=== PATIENT | female | born 1950 | race Caucasian/White ===

== ENCOUNTER 2022-10-12 10:30 | Outpatient (RCR) | payer OTHER, SELFPAY ==
--- NOTE | 2022-07-03 16:49 | PT.OIE ---
Current Diagnoses Pain in left hip (07/03/22) Pain in left knee (07/03/22) Low back pain, unspecified (07/03/22) Visit Care Team Role Provider Type Gabriel Ruiz MD Family Provider Non-Staff Primary Care Provider Specialty: Family Practice Address: [address] [place] [address], [id number] Email: WINNIE Coyle Attending Provider Non-Staff Referring Provider Specialty: Medical Address: [address] [place] [address], [phone] Email: Physical Therapy Initial Evaluation PT-OP-A Visit Information Start: 07/03/22 15:40 Freq: Status: Active Protocol: Document 07/03/22 09:45 DCW (Rec: 07/03/22 15:47 [facility] [id number]) Out-Patient Physical Therapy Visit Information Visit Information Visit Type Initial Evaluation Visit Start Time 09:45 Visit Stop Time 10:20 Total Visit Minutes 35 Visit Number 1 Number of DEVELOPMENT COORDINATOR Visits 0 Evaluation Information Evaluation Date 07/03/22 PT-OP-B Current Condition Start: 07/03/22 15:40 Freq: Status: Active Protocol: Document 07/03/22 09:45 DCW (Rec: 07/03/22 15:47 [facility] [id number]) Current Condition History of Current Condition Onset Date ~Two month history Current Complaints Left hip pain History of Current Condition Pt reports that two months ago , she began to have fairly severe pain in her left low back, hip, and knee. Reports pain was more than a 10/10. Unsure of any sore of cause, cannot remember anything happening. Reports she could not find anything that gave her relief, was unable to do any of her normal activities, struggled to even go up stairs . Admits that now, after waiting to get seen, she is actually doing much better. 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 Pt reports she is now able to do all her chores, pain has been more like a 1-2/10. Overall, feels that she is doing well, but would like to learn what she can do to help prevent this from coming back, and help get her hip moving a little better, because it is still stiff. PT-OP-C Subjective Start: 07/03/22 15:40 Freq: Status: Active Protocol: Document 07/03/22 09:45 DCW (Rec: 07/03/22 15:52 DCW [id number]) OP-PT Subjective Patient Comments Patient Comments It's actually feeling pretty good by now. Patient Reported Progress Improving Patient Questionnaires Oswestry Low Back Index Oswestry Score 13/50 = 26% Oswestry Impairment 20 to 39% Impaired (Score 20- 39) PT-OP-F Manual Assessment Start: 07/03/22 15:40 Freq: Status: Active Protocol: Document 07/03/22 09:45 DCW (Rec: 07/03/22 15:52 DCW [id number]) Manual Assessments Soft Tissue Assessment Soft Tissue Mobility Assessment Moderate tone with tenderness to palpation 2/4: pain with wincing along left QL, left piriformis, left ITB Joint Mobility Assessment Joint Mobility Assessment Hypomobility of L3 with mild complaint of pain PT-OP-L Special Tests Start: 07/03/22 15:40 Freq: Status: Active Protocol: Document 07/03/22 09:45 DCW (Rec: 07/03/22 15:52 DCW [id number]) Special Tests Lumbar Spine Special Tests JAYRO Test Results positive left ipsilateral anterior knee pain Lio Test Results hip flexor tightness Straight Leg Raise Test Results hamstring tightness Slump Test Results Negative Manual Traction Test Results Negative A-P Shearing Test Results Negative PT-OP-M Strength Start: 07/03/22 15:40 Freq: Status: Active Protocol: Document 07/03/22 09:45 DCW (Rec: 07/03/22 15:52 DCW [id number]) Hip Strength Hip Manual Muscle Testing Right Flexion (L2) 5 Normal Abduction 5 Normal Adduction 5 Normal Left Flexion (L2) 5 Normal Abduction 5 Normal Adduction 5 Normal Knee Strength Knee Manual Muscle Testing Right Flexion (S2) 5 Normal Extension (L3) 5 Normal Left Flexion (S2) 5 Normal Extension (L3) 5 Normal PT-OP-Q Treatments Start: 07/03/22 15:40 Freq: Status: Active Protocol: Document 07/03/22 09:45 DCW (Rec: 07/03/22 15:47 DCW [id number]) Therapeutic Exercises Sitting Exercises Piriformis stretch Sitting Exercise Name Seated figure-4 Side left PT-OP-T Assessment and Plan Start: 07/03/22 15:40 Freq: Status: Active Protocol: Document 07/03/22 09:45 DCW (Rec: 07/03/22 16:48 [facility] [id number]) Physical Therapy Assessment Rehab Potential Rehabilitation Potential Good Evaluation Complexity Number of Personal Factors/Comorbidities 1-2 Number of Body Systems Impaired 1-2 Clinical Presentation at Evaluation Stable Impairments Impairments Functional Activities, Functional Mobility,Pain,Soft Tissue Mobility,Tone Goals Two Impairment L hip pain and stiffness Obstetrics Nurse Goal (LTG) Pt to demonstrate negative SLR and JAYRO tests in order to display improve hip mobility in order to ascend/descend stairs without discomfort. LTG Duration 08/14/22 One Impairment Pt does not have an appropriate home exercise program Short Term Goal (STG) Pt to be independent and compliant with an appropriate HEP STG Duration 08/03/22 Assessment Summary Assessment Pt presents with signs and symptoms consistent with hip flexor and external rotator spasm. May have been caused by protective spasming due to degenerative changes in her low back, but has drastically improved since her initial symptoms began. Pt will likely progress quickly with STM and stretching in order to reduce tone and improve left hip mobility. Should continue with piriformis stretch, in addition to hip flexor/ITB stretches, and STM. Physical Therapy Plan Frequency and Duration Frequency of Treatment 1-2x/wk Duration of treatment (weeks) 8 Plan of Care Start Date 07/03/22 Plan of Care End Date 08/14/22 Therapeutic Interventions Therapeutic Interventions Home Exercise Program,Joint Mobilizations,Manual Therapy, Patient/Caregiver Education, Self-Care/Home Management,Soft Tissue Mobilization, Therapeutic Activities, Therapeutic Exercises Next Visit Focus/Plan Next Note Type Treatment Note Next Visit Plan Stretching/flexibility of hip and joint capsule, STM
--- NOTE | 2022-07-03 16:49 | PT.OPPOC ---
Physical, Occupational & Speech Therapy At [facility] Current Diagnoses Pain in left hip (07/03/22) Pain in left knee (07/03/22) Low back pain, unspecified (07/03/22) Visit Care Team Role Provider Type Gabriel Ruiz MD Family Provider Non-Staff Primary Care Provider Specialty: Family Practice Address: [address] [place] [address], [id number] Email: WINNIE Coyle Attending Provider Non-Staff Referring Provider Specialty: Medical Address: [address] [place] [address], [place], [address] Email: Plan Of Care PT-OP-T Assessment and Plan Start: 07/03/22 15:40 Freq: Status: Active Protocol: Document 07/03/22 09:45 DCW (Rec: 07/03/22 16:48 DCW [id number]) Physical Therapy Assessment Rehab Potential Rehabilitation Potential Good Evaluation Complexity Number of Personal Factors/Comorbidities 1-2 Number of Body Systems Impaired 1-2 Clinical Presentation at Evaluation Stable Impairments Impairments Functional Activities, Functional Mobility,Pain,Soft Tissue Mobility,Tone Goals Two Impairment L hip pain and stiffness Pet Feeder Goal (LTG) Pt to demonstrate negative SLR and JAYRO tests in order to display improve hip mobility in order to ascend/descend stairs without discomfort. LTG Duration 08/14/22 One Impairment Pt does not have an appropriate home exercise program Short Term Goal (STG) Pt to be independent and compliant with an appropriate HEP STG Duration 08/03/22 Assessment Summary Assessment Pt presents with signs and symptoms consistent with hip flexor and external rotator spasm. May have been caused by protective spasming due to degenerative changes in her low back, but has drastically improved since her initial symptoms began. Pt will likely progress quickly with STM and stretching in order to reduce tone and improve left hip mobility. Should continue with piriformis stretch, in addition to hip flexor/ITB stretches, and STM. Physical Therapy Plan Frequency and Duration Frequency of Treatment 1-2x/wk Duration of treatment (weeks) 8 Plan of Care Start Date 07/03/22 Plan of Care End Date 08/14/22 Therapeutic Interventions Therapeutic Interventions Home Exercise Program,Joint Mobilizations,Manual Therapy, Patient/Caregiver Education, Self-Care/Home Management,Soft Tissue Mobilization, Therapeutic Activities, Therapeutic Exercises Next Visit Focus/Plan Next Note Type Treatment Note Next Visit Plan Stretching/flexibility of hip and joint capsule, STM Plan of Care Dates Plan of Care Start Date 07/03/22 Plan of Care End Date 08/14/22 Electronically Signed by: Waylon Bray, PT 07/03/22 5040 If you are in agreement with this Plan of Care, please return a signed and dated copy. I have reviewed this Plan of Care and certify that the skilled therapy services above are required to meet the patient?s needs. Physician Signature Date Printed Name and Credentials Clinical Instructor Signature Printed Name and Credentials
--- NOTE | 2022-08-28 15:16 | PT.OTN ---
Current Diagnoses Pain in left hip (08/28/22) Pain in left knee (08/28/22) Low back pain, unspecified (08/28/22) Physical Therapy Treatment Note PT-OP-A Visit Information Start: 07/03/22 15:40 Freq: Status: Active Protocol: Document 08/28/22 14:30 DCW (Rec: 08/28/22 15:16 DCW [id number]) Out-Patient Physical Therapy Visit Information Visit Information Visit Type Treatment Note Visit Start Time 14:30 Visit Stop Time 15:15 Total Visit Minutes 45 Visit Number 2 Number of SMALL ENGINE SPECIALIST Visits 0 Evaluation Information Evaluation Date 07/03/22 PT-OP-B Current Condition Start: 07/03/22 15:40 Freq: Status: Active Protocol: Document 07/03/22 09:45 DCW (Rec: 07/03/22 15:47 DCW [id number]) Current Condition History of Current Condition Onset Date ~Two month history Current Complaints Left hip pain History of Current Condition Pt reports that two months ago , she began to have fairly severe pain in her left low back, hip, and knee. Reports pain was more than a 10/10. Unsure of any sore of cause, cannot remember anything happening. Reports she could not find anything that gave her relief, was unable to do any of her normal activities, struggled to even go up stairs . Admits that now, after waiting to get seen, she is actually doing much better. 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 Pt reports she is now able to do all her chores, pain has been more like a 1-2/10. Overall, feels that she is doing well, but would like to learn what she can do to help prevent this from coming back, and help get her hip moving a little better, because it is still stiff. PT-OP-C Subjective Start: 07/03/22 15:40 Freq: Status: Active Protocol: Document 08/28/22 14:30 DCW (Rec: 08/28/22 15:16 DCW [id number]) OP-PT Subjective Patient Comments Patient Comments Pt returned to PT following an extended layoff due to problems with her insurance auth. Reports she had been doing very well until last week, when she attempted to move her furniture and went back to [facility]. PT-OP-F Manual Assessment Start: 07/03/22 15:40 Freq: Status: Active Protocol: Document 08/28/22 14:30 DCW (Rec: 08/28/22 15:16 DCW [id number]) Manual Assessments Soft Tissue Assessment Soft Tissue Mobility Assessment Moderate tone with tenderness to palpation 3/4: wincing and withdraw along left QL, left piriformis, left ITB Joint Mobility Assessment Joint Mobility Assessment Hypomobility of L3 with mild complaint of pain PT-OP-L Special Tests Start: 07/03/22 15:40 Freq: Status: Active Protocol: Document 08/28/22 14:30 DCW (Rec: 08/28/22 15:16 DCW [id number]) Special Tests Lumbar Spine Special Tests JAYRO Test Results positive left ipsilateral anterior knee pain Lio Test Results hip flexor tightness Straight Leg Raise Test Results hamstring tightness Slump Test Results Negative Manual Traction Test Results Negative A-P Shearing Test Results Negative PT-OP-M Strength Start: 07/03/22 15:40 Freq: Status: Active Protocol: Document 07/03/22 09:45 DCW (Rec: 07/03/22 15:52 DCW [id number]) Hip Strength Hip Manual Muscle Testing Right Flexion (L2) 5 Normal Abduction 5 Normal Adduction 5 Normal Left Flexion (L2) 5 Normal Abduction 5 Normal Adduction 5 Normal Knee Strength Knee Manual Muscle Testing Right Flexion (S2) 5 Normal Extension (L3) 5 Normal Left Flexion (S2) 5 Normal Extension (L3) 5 Normal PT-OP-Q Treatments Start: 07/03/22 15:40 Freq: Status: Active Protocol: Document 08/28/22 14:30 DCW (Rec: 08/28/22 15:16 DCW [id number]) Therapeutic Exercises Supine Exercises Piriformis stretch Supine Exercise Name Knee to opposite shoulder Side left Hamstring Stretch Supine Exercise Name HS stretch Side bilateral KtC Supine Exercise Name Single, Double KtC Side bilateral Sidelying Exercises Hip Abduction Sidelying Exercise Name Abduction Side left Reverse Clamshell Sidelying Exercise Name Reverse Clamshell Side left Clamshell Sidelying Exercise Name Clamshell Side left Manual Therapy Treatment Soft Tissue Mobilization Paraspinals Body Location L Lumbar paraspinals Mobilization Type Sustained Pressure,Trigger Point Release Intensity/Depth Moderate Body Position Sidelying Piriformis Body Location L Piriformis Mobilization Type Sustained Pressure,Trigger Point Release Intensity/Depth Moderate Body Position Sidelying Manual Traction Left hip Details Joint capsule Body Position Hooklying Comments Lateral traction /c strap PT-OP-T Assessment and Plan Start: 07/03/22 15:40 Freq: Status: Active Protocol: Document 08/28/22 14:30 DCW (Rec: 08/28/22 15:16 DCW [id number]) Physical Therapy Assessment Goals Two Impairment L hip pain and stiffness Supervisor Hot Dip Tinning Goal (LTG) Pt to demonstrate negative SLR and JAYRO tests in order to display improve hip mobility in order to ascend/descend stairs without discomfort. LTG Duration 08/14/22 One Impairment Pt does not have an appropriate home exercise program Short Term Goal (STG) Pt to be independent and compliant with an appropriate HEP STG Duration 08/03/22 Assessment Summary Assessment Pt a little more tender today after flaring herself up moving furniture last week, with most stretching she was wincing and bracing herself, but would then report she was fine and not having any pain. Did appear to have improved mobility and was able to relax more after lateral distraction of hip to stretch out joint capsule. Sounds like she had been doing very well and was compliant with HEP. Will likely benefit from now consistent therapy and continued manual therapy, joint mobs, stretching, and functional training. Physical Therapy Plan Frequency and Duration Frequency of Treatment 1-2x/wk Plan of Care Start Date 08/28/22 Plan of Care End Date 10/23/22 Therapeutic Interventions Therapeutic Interventions Home Exercise Program,Joint Mobilizations,Manual Therapy, Patient/Caregiver Education, Self-Care/Home Management,Soft Tissue Mobilization, Therapeutic Activities, Therapeutic Exercises Next Visit Focus/Plan Next Note Type Treatment Note Next Visit Plan Stretching/flexibility of hip and joint capsule, STM
--- NOTE | 2022-08-28 15:17 | PT.OPPOC ---
Physical, Occupational & Speech Therapy At [facility] Current Diagnoses Pain in left hip (08/28/22) Pain in left knee (08/28/22) Low back pain, unspecified (08/28/22) Visit Care Team Role Provider Type Gabriel Ruiz MD Family Provider Non-Staff Primary Care Provider Specialty: Family Practice Address: [address] [place] [address], [id number] Email: WINNIE Coyle Attending Provider Non-Staff Referring Provider Specialty: Medical Address: [address] [place] [address], [place], [address] Email: Plan Of Care PT-OP-T Assessment and Plan Start: 07/03/22 15:40 Freq: Status: Active Protocol: Document 08/28/22 14:30 DCW (Rec: 08/28/22 15:16 DCW [id number]) Physical Therapy Assessment Goals Two Impairment L hip pain and stiffness Skilled Nursing Goal (LTG) Pt to demonstrate negative SLR and JAYRO tests in order to display improve hip mobility in order to ascend/descend stairs without discomfort. LTG Duration 08/14/22 One Impairment Pt does not have an appropriate home exercise program Short Term Goal (STG) Pt to be independent and compliant with an appropriate HEP STG Duration 08/03/22 Assessment Summary Assessment Pt a little more tender today after flaring herself up moving furniture last week, with most stretching she was wincing and bracing herself, but would then report she was fine and not having any pain. Did appear to have improved mobility and was able to relax more after lateral distraction of hip to stretch out joint capsule. Sounds like she had been doing very well and was compliant with HEP. Will likely benefit from now consistent therapy and continued manual therapy, joint mobs, stretching, and functional training. Physical Therapy Plan Frequency and Duration Frequency of Treatment 1-2x/wk Plan of Care Start Date 08/28/22 Plan of Care End Date 10/23/22 Therapeutic Interventions Therapeutic Interventions Home Exercise Program,Joint Mobilizations,Manual Therapy, Patient/Caregiver Education, Self-Care/Home Management,Soft Tissue Mobilization, Therapeutic Activities, Therapeutic Exercises Next Visit Focus/Plan Next Note Type Treatment Note Next Visit Plan Stretching/flexibility of hip and joint capsule, STM Plan of Care Dates Plan of Care Start Date 08/28/22 Plan of Care End Date 10/23/22 Electronically Signed by: Waylon Bray, PT 08/28/22 0043 If you are in agreement with this Plan of Care, please return a signed and dated copy. I have reviewed this Plan of Care and certify that the skilled therapy services above are required to meet the patient?s needs. Physician Signature Date Printed Name and Credentials Clinical Instructor Signature Printed Name and Credentials
--- NOTE | 2022-09-03 16:00 | PT.OTN ---
Current Diagnoses Pain in left hip (09/03/22) Pain in left knee (09/03/22) Low back pain, unspecified (09/03/22) Physical Therapy Treatment Note PT-OP-A Visit Information Start: 07/03/22 15:40 Freq: Status: Active Protocol: Document 09/03/22 15:15 DCW (Rec: 09/03/22 16:00 DCW [id number]) Out-Patient Physical Therapy Visit Information Visit Information Visit Type Treatment Note Visit Start Time 15:15 Visit Stop Time 16:00 Total Visit Minutes 45 Visit Number 3 Number of POCKET SECRETARY ASSEMBLER Visits 0 Evaluation Information Evaluation Date 07/03/22 PT-OP-B Current Condition Start: 07/03/22 15:40 Freq: Status: Active Protocol: Document 07/03/22 09:45 DCW (Rec: 07/03/22 15:47 DCW [id number]) Current Condition History of Current Condition Onset Date ~Two month history Current Complaints Left hip pain History of Current Condition Pt reports that two months ago , she began to have fairly severe pain in her left low back, hip, and knee. Reports pain was more than a 10/10. Unsure of any sore of cause, cannot remember anything happening. Reports she could not find anything that gave her relief, was unable to do any of her normal activities, struggled to even go up stairs . Admits that now, after waiting to get seen, she is actually doing much better. 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 Pt reports she is now able to do all her chores, pain has been more like a 1-2/10. Overall, feels that she is doing well, but would like to learn what she can do to help prevent this from coming back, and help get her hip moving a little better, because it is still stiff. PT-OP-C Subjective Start: 07/03/22 15:40 Freq: Status: Active Protocol: Document 09/03/22 15:15 DCW (Rec: 09/03/22 16:00 DCW [id number]) OP-PT Subjective Patient Comments Patient Comments Pt admits she was a little sore after last visit, has been taking Tylenol basically every night. Patient Reported Progress Worse PT-OP-F Manual Assessment Start: 07/03/22 15:40 Freq: Status: Active Protocol: Document 08/28/22 14:30 DCW (Rec: 08/28/22 15:16 DCW [id number]) Manual Assessments Soft Tissue Assessment Soft Tissue Mobility Assessment Moderate tone with tenderness to palpation 3/4: wincing and withdraw along left QL, left piriformis, left ITB Joint Mobility Assessment Joint Mobility Assessment Hypomobility of L3 with mild complaint of pain PT-OP-L Special Tests Start: 07/03/22 15:40 Freq: Status: Active Protocol: Document 08/28/22 14:30 DCW (Rec: 08/28/22 15:16 DCW [id number]) Special Tests Lumbar Spine Special Tests JAYRO Test Results positive left ipsilateral anterior knee pain Lio Test Results hip flexor tightness Straight Leg Raise Test Results hamstring tightness Slump Test Results Negative Manual Traction Test Results Negative A-P Shearing Test Results Negative PT-OP-M Strength Start: 07/03/22 15:40 Freq: Status: Active Protocol: Document 07/03/22 09:45 DCW (Rec: 07/03/22 15:52 DCW [id number]) Hip Strength Hip Manual Muscle Testing Right Flexion (L2) 5 Normal Abduction 5 Normal Adduction 5 Normal Left Flexion (L2) 5 Normal Abduction 5 Normal Adduction 5 Normal Knee Strength Knee Manual Muscle Testing Right Flexion (S2) 5 Normal Extension (L3) 5 Normal Left Flexion (S2) 5 Normal Extension (L3) 5 Normal PT-OP-Q Treatments Start: 07/03/22 15:40 Freq: Status: Active Protocol: Document 09/03/22 15:15 DCW (Rec: 09/03/22 16:00 DCW [id number]) Gym Equipment Therapeutic Ball Hip/knee fkexion Exercise Details Hip/Knee flexion vs resistance Ball Size/Color Red - 55 cm Lv 2 T-band LTR Exercise Details LTR Ball Size/Color Red - 55 cm Body Position Supine Therapeutic Exercises Supine Exercises Piriformis stretch Supine Exercise Name Knee to opposite shoulder Side left Hamstring Stretch Supine Exercise Name HS stretch Side bilateral KtC Supine Exercise Name Single, Double KtC Side bilateral Manual Therapy Treatment Soft Tissue Mobilization Paraspinals Body Location B Lumbar paraspinals Mobilization Type Sustained Pressure,Trigger Point Release Intensity/Depth Moderate Body Position Sidelying Piriformis Body Location L Piriformis Mobilization Type Sustained Pressure,Trigger Point Release Intensity/Depth Moderate Body Position Sidelying PT-OP-T Assessment and Plan Start: 07/03/22 15:40 Freq: Status: Active Protocol: Document 09/03/22 15:15 DCW (Rec: 09/03/22 16:00 DCW [id number]) Physical Therapy Assessment Goals Two Impairment L hip pain and stiffness Assisted Goal (LTG) Pt to demonstrate negative SLR and JAYRO tests in order to display improve hip mobility in order to ascend/descend stairs without discomfort. LTG Duration 08/14/22 One Impairment Pt does not have an appropriate home exercise program Short Term Goal (STG) Pt to be independent and compliant with an appropriate HEP STG Duration 08/03/22 Assessment Summary Assessment Pt feeling much better today following her session, able to get off table and walk out with significantly less discomfort. Pt agreeable to increase HS and ITB stretching at home. Physical Therapy Plan Frequency and Duration Frequency of Treatment 1-2x/wk Plan of Care Start Date 08/28/22 Plan of Care End Date 10/23/22 Therapeutic Interventions Therapeutic Interventions Home Exercise Program,Joint Mobilizations,Manual Therapy, Patient/Caregiver Education, Self-Care/Home Management,Soft Tissue Mobilization, Therapeutic Activities, Therapeutic Exercises Next Visit Focus/Plan Next Note Type Treatment Note Next Visit Plan Stretching/flexibility of hip and joint capsule, STM
--- NOTE | 2022-09-08 09:00 | PT.OTN ---
Current Diagnoses Pain in left hip (09/08/22) Pain in left knee (09/08/22) Low back pain, unspecified (09/08/22) Physical Therapy Treatment Note PT-OP-A Visit Information Start: 07/03/22 15:40 Freq: Status: Active Protocol: Document 09/08/22 08:19 SP (Rec: 09/08/22 09:09 SP [id number]) Out-Patient Physical Therapy Visit Information Visit Information Visit Type Treatment Note Visit Start Time 08:19 Visit Stop Time 09:00 Total Visit Minutes 41 Visit Number 4 Number of VERIFICATION SPECIALIST Visits 1 Evaluation Information Evaluation Date 07/03/22 PT-OP-B Current Condition Start: 07/03/22 15:40 Freq: Status: Active Protocol: Document 07/03/22 09:45 DCW (Rec: 07/03/22 15:47 DCW [id number]) Current Condition History of Current Condition Onset Date ~Two month history Current Complaints Left hip pain History of Current Condition Pt reports that two months ago , she began to have fairly severe pain in her left low back, hip, and knee. Reports pain was more than a 10/10. Unsure of any sore of cause, cannot remember anything happening. Reports she could not find anything that gave her relief, was unable to do any of her normal activities, struggled to even go up stairs . Admits that now, after waiting to get seen, she is actually doing much better. 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 Pt reports she is now able to do all her chores, pain has been more like a 1-2/10. Overall, feels that she is doing well, but would like to learn what she can do to help prevent this from coming back, and help get her hip moving a little better, because it is still stiff. PT-OP-C Subjective Start: 07/03/22 15:40 Freq: Status: Active Protocol: Document 09/08/22 08:19 SP (Rec: 09/08/22 09:09 SP [id number]) OP-PT Subjective Patient Comments Patient Comments Pt reports doing stretches, slept ok last night back sore but able to go to sleep eventually. PT-OP-F Manual Assessment Start: 07/03/22 15:40 Freq: Status: Active Protocol: Document 08/28/22 14:30 DCW (Rec: 08/28/22 15:16 DCW [id number]) Manual Assessments Soft Tissue Assessment Soft Tissue Mobility Assessment Moderate tone with tenderness to palpation 3/4: wincing and withdraw along left QL, left piriformis, left ITB Joint Mobility Assessment Joint Mobility Assessment Hypomobility of L3 with mild complaint of pain PT-OP-L Special Tests Start: 07/03/22 15:40 Freq: Status: Active Protocol: Document 08/28/22 14:30 DCW (Rec: 08/28/22 15:16 DCW [id number]) Special Tests Lumbar Spine Special Tests JAYRO Test Results positive left ipsilateral anterior knee pain Lio Test Results hip flexor tightness Straight Leg Raise Test Results hamstring tightness Slump Test Results Negative Manual Traction Test Results Negative A-P Shearing Test Results Negative PT-OP-M Strength Start: 07/03/22 15:40 Freq: Status: Active Protocol: Document 07/03/22 09:45 DCW (Rec: 07/03/22 15:52 DCW [id number]) Hip Strength Hip Manual Muscle Testing Right Flexion (L2) 5 Normal Abduction 5 Normal Adduction 5 Normal Left Flexion (L2) 5 Normal Abduction 5 Normal Adduction 5 Normal Knee Strength Knee Manual Muscle Testing Right Flexion (S2) 5 Normal Extension (L3) 5 Normal Left Flexion (S2) 5 Normal Extension (L3) 5 Normal PT-OP-Q Treatments Start: 07/03/22 15:40 Freq: Status: Active Protocol: Document 09/08/22 08:19 SP (Rec: 09/08/22 09:09 SP [id number]) Gym Equipment Therapeutic Ball Hip/knee fkexion Exercise Details Hip/Knee flexion vs resistance - added to HEP Ball Size/Color Red - 55 cm Lv 2 T-band Body Position Hooklying Reps/Duration 2x10 Comments provided HOs for home LTR Exercise Details LTR- added toHEP Ball Size/Color Red - 55 cm Body Position Supine Comments AROM> TB #2-provided HOs for home Therapeutic Exercises Supine Exercises Piriformis stretch Supine Exercise Name Knee to opposite shoulder Side left Reps/Minutes 20 SH x2 Comments good feedback stretch Hamstring Stretch Supine Exercise Name HS stretch Side bilateral Reps/Minutes static stretch 20 s, active neutral glide w/ AP Comments good feedback stretch, cued slow low lift and if ok add AP slowly KtC Supine Exercise Name Single, Double KtC Side bilateral Reps/Minutes 20SH 3each Comments good feedback stretch Standing Exercises self STMs Standing Exercise Name ES, glut Side bilateral Equipment Used racquetball onw all Comments good feedback massage R and L glut, little sensitive L ES. Manual Therapy Treatment Soft Tissue Mobilization Paraspinals Body Location B Lumbar paraspinals Mobilization Type Sustained Pressure,Trigger Point Release Intensity/Depth Moderate Body Position Sidelying Piriformis Body Location L Piriformis Mobilization Type Sustained Pressure,Trigger Point Release Intensity/Depth Moderate Body Position Sidelying PT-OP-T Assessment and Plan Start: 07/03/22 15:40 Freq: Status: Active Protocol: Document 09/08/22 08:19 SP (Rec: 09/08/22 09:09 SP [id number]) Physical Therapy Assessment Goals Two Impairment L hip pain and stiffness Assisted Goal (LTG) Pt to demonstrate negative SLR and JAYRO tests in order to display improve hip mobility in order to ascend/descend stairs without discomfort. LTG Duration 08/14/22 One Impairment Pt does not have an appropriate home exercise program Short Term Goal (STG) Pt to be independent and compliant with an appropriate HEP STG Duration 08/03/22 Assessment Summary Assessment Pt good feedback stretch carryover with cues for set up , provided HOs for recall home . Trialed self massage racquetball on wall, little sensitive L paraspinal but rest of areas. Pt reported L low back felt better end tx and liked use of having HOs at home. Physical Therapy Plan Frequency and Duration Frequency of Treatment 1-2x/wk Plan of Care Start Date 08/28/22 Plan of Care End Date 10/23/22 Therapeutic Interventions Therapeutic Interventions Home Exercise Program,Joint Mobilizations,Manual Therapy, Patient/Caregiver Education, Self-Care/Home Management,Soft Tissue Mobilization, Therapeutic Activities, Therapeutic Exercises Next Visit Focus/Plan Next Note Type Treatment Note Next Visit Plan Stretching/flexibility of hip and joint capsule, STM
--- NOTE | 2022-09-22 17:38 | PT.OTN ---
Current Diagnoses Pain in left hip (09/22/22) Pain in left knee (09/22/22) Low back pain, unspecified (09/22/22) Physical Therapy Treatment Note PT-OP-A Visit Information Start: 07/03/22 15:40 Freq: Status: Active Protocol: Document 09/22/22 16:48 DCW (Rec: 09/22/22 17:38 DCW [id number]) Out-Patient Physical Therapy Visit Information Visit Information Visit Type Treatment Note Visit Start Time 16:47 Visit Stop Time 17:30 Total Visit Minutes 43 Visit Number 5 Number of GAS UTILITY WORKER Visits 0 Evaluation Information Evaluation Date 07/03/22 PT-OP-B Current Condition Start: 07/03/22 15:40 Freq: Status: Active Protocol: Document 07/03/22 09:45 DCW (Rec: 07/03/22 15:47 DCW [id number]) Current Condition History of Current Condition Onset Date ~Two month history Current Complaints Left hip pain History of Current Condition Pt reports that two months ago , she began to have fairly severe pain in her left low back, hip, and knee. Reports pain was more than a 10/10. Unsure of any sore of cause, cannot remember anything happening. Reports she could not find anything that gave her relief, was unable to do any of her normal activities, struggled to even go up stairs . Admits that now, after waiting to get seen, she is actually doing much better. 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 Pt reports she is now able to do all her chores, pain has been more like a 1-2/10. Overall, feels that she is doing well, but would like to learn what she can do to help prevent this from coming back, and help get her hip moving a little better, because it is still stiff. PT-OP-C Subjective Start: 07/03/22 15:40 Freq: Status: Active Protocol: Document 09/22/22 16:48 DCW (Rec: 09/22/22 17:38 DCW [id number]) OP-PT Subjective Patient Comments Patient Comments Pt notes that following her PT appointments, she is very sore, reporting a 9/10 the day after, then returns to her normal of 6-7/10. Feels she has not progressed at all yet. PT-OP-F Manual Assessment Start: 07/03/22 15:40 Freq: Status: Active Protocol: Document 08/28/22 14:30 DCW (Rec: 08/28/22 15:16 DCW [id number]) Manual Assessments Soft Tissue Assessment Soft Tissue Mobility Assessment Moderate tone with tenderness to palpation 3/4: wincing and withdraw along left QL, left piriformis, left ITB Joint Mobility Assessment Joint Mobility Assessment Hypomobility of L3 with mild complaint of pain PT-OP-L Special Tests Start: 07/03/22 15:40 Freq: Status: Active Protocol: Document 08/28/22 14:30 DCW (Rec: 08/28/22 15:16 DCW [id number]) Special Tests Lumbar Spine Special Tests JAYRO Test Results positive left ipsilateral anterior knee pain Lio Test Results hip flexor tightness Straight Leg Raise Test Results hamstring tightness Slump Test Results Negative Manual Traction Test Results Negative A-P Shearing Test Results Negative PT-OP-M Strength Start: 07/03/22 15:40 Freq: Status: Active Protocol: Document 07/03/22 09:45 DCW (Rec: 07/03/22 15:52 DCW [id number]) Hip Strength Hip Manual Muscle Testing Right Flexion (L2) 5 Normal Abduction 5 Normal Adduction 5 Normal Left Flexion (L2) 5 Normal Abduction 5 Normal Adduction 5 Normal Knee Strength Knee Manual Muscle Testing Right Flexion (S2) 5 Normal Extension (L3) 5 Normal Left Flexion (S2) 5 Normal Extension (L3) 5 Normal PT-OP-Q Treatments Start: 07/03/22 15:40 Freq: Status: Active Protocol: Document 09/22/22 16:48 DCW (Rec: 09/22/22 17:38 DCW [id number]) Manual Therapy Treatment Soft Tissue Mobilization Paraspinals Body Location B Lumbar paraspinals Mobilization Type Sustained Pressure,Trigger Point Release Intensity/Depth Moderate Body Position Sidelying Piriformis Body Location L Piriformis Mobilization Type Sustained Pressure,Trigger Point Release Intensity/Depth Moderate Body Position Sidelying PT-OP-T Assessment and Plan Start: 07/03/22 15:40 Freq: Status: Active Protocol: Document 09/22/22 16:48 DCW (Rec: 09/22/22 17:38 DCW [id number]) Physical Therapy Assessment Goals Two Impairment L hip pain and stiffness Detention Goal (LTG) Pt to demonstrate negative SLR and JAYRO tests in order to display improve hip mobility in order to ascend/descend stairs without discomfort. LTG Duration 08/14/22 One Impairment Pt does not have an appropriate home exercise program Short Term Goal (STG) Pt to be independent and compliant with an appropriate HEP STG Duration 08/03/22 Assessment Summary Assessment With pt's current reports of fairly severe increased pain following her PT appointments, focused today strictly on STM /manual treatment, request pt to report next visit on how much pain she was in afterward , try to determine what activity is flaring her up in PT. Physical Therapy Plan Frequency and Duration Frequency of Treatment 1-2x/wk Plan of Care Start Date 08/28/22 Plan of Care End Date 10/23/22 Therapeutic Interventions Therapeutic Interventions Home Exercise Program,Joint Mobilizations,Manual Therapy, Patient/Caregiver Education, Self-Care/Home Management,Soft Tissue Mobilization, Therapeutic Activities, Therapeutic Exercises Next Visit Focus/Plan Next Note Type Treatment Note Next Visit Plan Stretching/flexibility of hip and joint capsule, STM
--- NOTE | 2022-09-25 13:00 | PT.OTN ---
Current Diagnoses Pain in left hip (09/25/22) Pain in left knee (09/25/22) Low back pain, unspecified (09/25/22) Physical Therapy Treatment Note PT-OP-A Visit Information Start: 07/03/22 15:40 Freq: Status: Active Protocol: Document 09/25/22 12:17 SP (Rec: 09/25/22 13:11 SP [id number]) Out-Patient Physical Therapy Visit Information Visit Information Visit Type Treatment Note Visit Start Time 12:17 Visit Stop Time 13:00 Total Visit Minutes 43 Visit Number 6 Number of SCHOOL TRAFFIC SUPERVISOR Visits 1 Evaluation Information Evaluation Date 07/03/22 PT-OP-B Current Condition Start: 07/03/22 15:40 Freq: Status: Active Protocol: Document 07/03/22 09:45 DCW (Rec: 07/03/22 15:47 DCW [id number]) Current Condition History of Current Condition Onset Date ~Two month history Current Complaints Left hip pain History of Current Condition Pt reports that two months ago , she began to have fairly severe pain in her left low back, hip, and knee. Reports pain was more than a 10/10. Unsure of any sore of cause, cannot remember anything happening. Reports she could not find anything that gave her relief, was unable to do any of her normal activities, struggled to even go up stairs . Admits that now, after waiting to get seen, she is actually doing much better. 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 Pt reports she is now able to do all her chores, pain has been more like a 1-2/10. Overall, feels that she is doing well, but would like to learn what she can do to help prevent this from coming back, and help get her hip moving a little better, because it is still stiff. PT-OP-C Subjective Start: 07/03/22 15:40 Freq: Status: Active Protocol: Document 09/25/22 12:17 SP (Rec: 09/25/22 13:11 SP [id number]) OP-PT Subjective Patient Comments Patient Comments What we did last time worked well. It was good for little bit then same back today. PT-OP-F Manual Assessment Start: 07/03/22 15:40 Freq: Status: Active Protocol: Document 08/28/22 14:30 DCW (Rec: 08/28/22 15:16 DCW [id number]) Manual Assessments Soft Tissue Assessment Soft Tissue Mobility Assessment Moderate tone with tenderness to palpation 3/4: wincing and withdraw along left QL, left piriformis, left ITB Joint Mobility Assessment Joint Mobility Assessment Hypomobility of L3 with mild complaint of pain PT-OP-L Special Tests Start: 07/03/22 15:40 Freq: Status: Active Protocol: Document 08/28/22 14:30 DCW (Rec: 08/28/22 15:16 DCW [id number]) Special Tests Lumbar Spine Special Tests JAYRO Test Results positive left ipsilateral anterior knee pain Lio Test Results hip flexor tightness Straight Leg Raise Test Results hamstring tightness Slump Test Results Negative Manual Traction Test Results Negative A-P Shearing Test Results Negative PT-OP-M Strength Start: 07/03/22 15:40 Freq: Status: Active Protocol: Document 07/03/22 09:45 DCW (Rec: 07/03/22 15:52 DCW [id number]) Hip Strength Hip Manual Muscle Testing Right Flexion (L2) 5 Normal Abduction 5 Normal Adduction 5 Normal Left Flexion (L2) 5 Normal Abduction 5 Normal Adduction 5 Normal Knee Strength Knee Manual Muscle Testing Right Flexion (S2) 5 Normal Extension (L3) 5 Normal Left Flexion (S2) 5 Normal Extension (L3) 5 Normal PT-OP-Q Treatments Start: 07/03/22 15:40 Freq: Status: Active Protocol: Document 09/25/22 12:17 SP (Rec: 09/25/22 13:11 SP [id number]) Therapeutic Exercises Supine Exercises lio stretch Supine Exercise Name added to HEP Side bilateral Resistance L>R Reps/Minutes 30x2 Comments good feedback stretch FIg 4 Supine Exercise Name added toHEP Side bilateral Equipment Used L>R Reps/Minutes 30 x2 Comments good feedback stretch Piriformis stretch Supine Exercise Name Knee to opposite shoulder Side left Resistance L>R Reps/Minutes 20 SH x2 Comments good feedback stretch KtC Supine Exercise Name Single, Double KtC Side bilateral Reps/Minutes 20SH 3each Comments DC due to anterior L hip pressure and pinch feeling Standing Exercises self STMs Standing Exercise Name L>R ES, L glut, L TFL Side bilateral Equipment Used racquetball on wall Reps/Minutes 30 Comments good feedback massage L glut region and ES Other Exercises 1/2 kneel stretch Other Exercise Name added to HEP Side left Reps/Minutes 30 x2 Comments good feedback stretch Manual Therapy Treatment Soft Tissue Mobilization Paraspinals Body Location B Lumbar paraspinals Mobilization Type Myofascial Release,Strumming, Sustained Pressure Intensity/Depth Moderate Body Position Prone Piriformis Body Location L Piriformis, glut med Mobilization Type Sustained Pressure,Trigger Point Release Intensity/Depth Moderate Body Position Prone Comments manual sustained pressure and w/ HIp IR/ ER PROM Manual Traction Left hip Details Joint capsule distraction- Grade II Body Position Hooklying Comments long axis pull and inferior traction /c strap with towel- good feedback response Self-Care/Home Management Treatment Education Patient Education Home Exercise Program,Joint Protection,Pain Management Other Education Discussed supine on floor and lower legs up on chair for hip and lumbar self traction, limited time to perform. Pt reported understood and will try at home. Added stretching, self STMs with good results in PT. PRovided HOs. PT-OP-T Assessment and Plan Start: 07/03/22 15:40 Freq: Status: Active Protocol: Document 09/25/22 12:17 SP (Rec: 09/25/22 13:11 SP [id number]) Physical Therapy Assessment Goals Two Impairment L hip pain and stiffness Halfway Goal (LTG) Pt to demonstrate negative SLR and JAYRO tests in order to display improve hip mobility in order to ascend/descend stairs without discomfort. LTG Duration 08/14/22 One Impairment Pt does not have an appropriate home exercise program Short Term Goal (STG) Pt to be independent and compliant with an appropriate HEP STG Duration 08/03/22 Assessment Summary Assessment Pt good feedback to manual and instruction self stretching and STMs to continue at home. Good understanding and proper set up/form durng tx, provided HOs for set up/recall. Pt reported feel more space in L hip leaving. Physical Therapy Plan Frequency and Duration Frequency of Treatment 1-2x/wk Plan of Care Start Date 08/28/22 Plan of Care End Date 10/23/22 Therapeutic Interventions Therapeutic Interventions Home Exercise Program,Joint Mobilizations,Manual Therapy, Patient/Caregiver Education, Self-Care/Home Management,Soft Tissue Mobilization, Therapeutic Activities, Therapeutic Exercises Next Visit Focus/Plan Next Note Type Treatment Note Next Visit Plan REcheck response to manual and added stretching last tx. POC: Stretching/flexibility of hip and joint capsule, STM
--- NOTE | 2022-09-30 12:42 | PT.OTN ---
Current Diagnoses Pain in left hip (09/30/22) Pain in left knee (09/30/22) Low back pain, unspecified (09/30/22) Physical Therapy Treatment Note PT-OP-A Visit Information Start: 07/03/22 15:40 Freq: Status: Active Protocol: Document 09/30/22 12:00 DCW (Rec: 09/30/22 12:42 DCW [id number]) Out-Patient Physical Therapy Visit Information Visit Information Visit Type Treatment Note Visit Start Time 12:00 Visit Stop Time 12:45 Total Visit Minutes 45 Visit Number 7 Number of PROVISIONING ANALYST Visits 0 Evaluation Information Evaluation Date 07/03/22 PT-OP-B Current Condition Start: 07/03/22 15:40 Freq: Status: Active Protocol: Document 07/03/22 09:45 DCW (Rec: 07/03/22 15:47 DCW [id number]) Current Condition History of Current Condition Onset Date ~Two month history Current Complaints Left hip pain History of Current Condition Pt reports that two months ago , she began to have fairly severe pain in her left low back, hip, and knee. Reports pain was more than a 10/10. Unsure of any sore of cause, cannot remember anything happening. Reports she could not find anything that gave her relief, was unable to do any of her normal activities, struggled to even go up stairs . Admits that now, after waiting to get seen, she is actually doing much better. 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 Pt reports she is now able to do all her chores, pain has been more like a 1-2/10. Overall, feels that she is doing well, but would like to learn what she can do to help prevent this from coming back, and help get her hip moving a little better, because it is still stiff. PT-OP-C Subjective Start: 07/03/22 15:40 Freq: Status: Active Protocol: Document 09/30/22 12:00 DCW (Rec: 09/30/22 12:42 DCW [id number]) OP-PT Subjective Patient Comments Patient Comments I was feeling good, and I was feeling brave, so I took a walk along [place], and then pain came back. PT-OP-F Manual Assessment Start: 07/03/22 15:40 Freq: Status: Active Protocol: Document 08/28/22 14:30 DCW (Rec: 08/28/22 15:16 DCW [id number]) Manual Assessments Soft Tissue Assessment Soft Tissue Mobility Assessment Moderate tone with tenderness to palpation 3/4: wincing and withdraw along left QL, left piriformis, left ITB Joint Mobility Assessment Joint Mobility Assessment Hypomobility of L3 with mild complaint of pain PT-OP-L Special Tests Start: 07/03/22 15:40 Freq: Status: Active Protocol: Document 08/28/22 14:30 DCW (Rec: 08/28/22 15:16 DCW [id number]) Special Tests Lumbar Spine Special Tests JAYRO Test Results positive left ipsilateral anterior knee pain Lio Test Results hip flexor tightness Straight Leg Raise Test Results hamstring tightness Slump Test Results Negative Manual Traction Test Results Negative A-P Shearing Test Results Negative PT-OP-M Strength Start: 07/03/22 15:40 Freq: Status: Active Protocol: Document 07/03/22 09:45 DCW (Rec: 07/03/22 15:52 DCW [id number]) Hip Strength Hip Manual Muscle Testing Right Flexion (L2) 5 Normal Abduction 5 Normal Adduction 5 Normal Left Flexion (L2) 5 Normal Abduction 5 Normal Adduction 5 Normal Knee Strength Knee Manual Muscle Testing Right Flexion (S2) 5 Normal Extension (L3) 5 Normal Left Flexion (S2) 5 Normal Extension (L3) 5 Normal PT-OP-Q Treatments Start: 07/03/22 15:40 Freq: Status: Active Protocol: Document 09/30/22 12:00 DCW (Rec: 09/30/22 12:42 DCW [id number]) Therapeutic Exercises Standing Exercises Extension Standing Exercise Name Hip Extension Side bilateral Resistance Yellow Pallof Press Standing Exercise Name Pallof Press Side bilateral Resistance Lv 2 Abduction Standing Exercise Name Hip Abduction Side bilateral Resistance Yellow Manual Therapy Treatment Soft Tissue Mobilization Paraspinals Body Location B Lumbar paraspinals Mobilization Type Myofascial Release,Strumming, Sustained Pressure Intensity/Depth Moderate Body Position Prone Piriformis Body Location L Piriformis, glut med Mobilization Type Sustained Pressure,Trigger Point Release Intensity/Depth Moderate Body Position Prone Comments manual sustained pressure and w/ HIp IR/ ER PROM PT-OP-T Assessment and Plan Start: 07/03/22 15:40 Freq: Status: Active Protocol: Document 09/30/22 12:00 DCW (Rec: 09/30/22 12:42 DCW [id number]) Physical Therapy Assessment Impairments Impairments Functional Activities, Functional Mobility,Pain,Soft Tissue Mobility,Tone Goals Two Impairment L hip pain and stiffness Cancer Program Consultant Goal (LTG) Pt to demonstrate negative SLR and JAYRO tests in order to display improve hip mobility in order to ascend/descend stairs without discomfort. LTG Duration 10/23/22 One Impairment Pt does not have an appropriate home exercise program Short Term Goal (STG) Pt to be independent and compliant with an appropriate HEP STG Duration 10/23/22 Assessment Summary Assessment Pt tolerated exercise slightly better today following STM, noted no complaints of pain afterward. Recommend continued to track how she feels following her PT sessions, help to adjust what activities she can tolerate without extreme pain afterward. Physical Therapy Plan Frequency and Duration Frequency of Treatment 1-2x/wk Plan of Care Start Date 08/28/22 Plan of Care End Date 10/23/22 Therapeutic Interventions Therapeutic Interventions Home Exercise Program,Joint Mobilizations,Manual Therapy, Patient/Caregiver Education, Self-Care/Home Management,Soft Tissue Mobilization, Therapeutic Activities, Therapeutic Exercises Next Visit Focus/Plan Next Note Type Treatment Note Next Visit Plan REcheck response to manual and added stretching last tx. POC: Stretching/flexibility of hip and joint capsule, STM
--- NOTE | 2022-10-02 10:25 | PT.OTN ---
Current Diagnoses Pain in left hip (10/02/22) Pain in left knee (10/02/22) Low back pain, unspecified (10/02/22) Physical Therapy Treatment Note PT-OP-A Visit Information Start: 07/03/22 15:40 Freq: Status: Active Protocol: Document 10/02/22 09:45 DCW (Rec: 10/02/22 10:25 DCW [id number]) Out-Patient Physical Therapy Visit Information Visit Information Visit Type Treatment Note Visit Start Time 09:45 Visit Stop Time 10:30 Total Visit Minutes 45 Visit Number 8 Number of CARDIOPULMONARY TECHNOLOGIST CHIEF Visits 0 Evaluation Information Evaluation Date 07/03/22 PT-OP-B Current Condition Start: 07/03/22 15:40 Freq: Status: Active Protocol: Document 07/03/22 09:45 DCW (Rec: 07/03/22 15:47 DCW [id number]) Current Condition History of Current Condition Onset Date ~Two month history Current Complaints Left hip pain History of Current Condition Pt reports that two months ago , she began to have fairly severe pain in her left low back, hip, and knee. Reports pain was more than a 10/10. Unsure of any sore of cause, cannot remember anything happening. Reports she could not find anything that gave her relief, was unable to do any of her normal activities, struggled to even go up stairs . Admits that now, after waiting to get seen, she is actually doing much better. 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 Pt reports she is now able to do all her chores, pain has been more like a 1-2/10. Overall, feels that she is doing well, but would like to learn what she can do to help prevent this from coming back, and help get her hip moving a little better, because it is still stiff. PT-OP-C Subjective Start: 07/03/22 15:40 Freq: Status: Active Protocol: Document 10/02/22 09:45 DCW (Rec: 10/02/22 10:25 DCW [id number]) OP-PT Subjective Patient Comments Patient Comments Every day I wake up and think I'm feeling good, and then I start to walk, and realize I'm still very sore. PT-OP-F Manual Assessment Start: 07/03/22 15:40 Freq: Status: Active Protocol: Document 08/28/22 14:30 DCW (Rec: 08/28/22 15:16 DCW [id number]) Manual Assessments Soft Tissue Assessment Soft Tissue Mobility Assessment Moderate tone with tenderness to palpation 3/4: wincing and withdraw along left QL, left piriformis, left ITB Joint Mobility Assessment Joint Mobility Assessment Hypomobility of L3 with mild complaint of pain PT-OP-L Special Tests Start: 07/03/22 15:40 Freq: Status: Active Protocol: Document 08/28/22 14:30 DCW (Rec: 08/28/22 15:16 DCW [id number]) Special Tests Lumbar Spine Special Tests JAYRO Test Results positive left ipsilateral anterior knee pain Lio Test Results hip flexor tightness Straight Leg Raise Test Results hamstring tightness Slump Test Results Negative Manual Traction Test Results Negative A-P Shearing Test Results Negative PT-OP-M Strength Start: 07/03/22 15:40 Freq: Status: Active Protocol: Document 07/03/22 09:45 DCW (Rec: 07/03/22 15:52 DCW [id number]) Hip Strength Hip Manual Muscle Testing Right Flexion (L2) 5 Normal Abduction 5 Normal Adduction 5 Normal Left Flexion (L2) 5 Normal Abduction 5 Normal Adduction 5 Normal Knee Strength Knee Manual Muscle Testing Right Flexion (S2) 5 Normal Extension (L3) 5 Normal Left Flexion (S2) 5 Normal Extension (L3) 5 Normal PT-OP-Q Treatments Start: 07/03/22 15:40 Freq: Status: Active Protocol: Document 10/02/22 09:45 DCW (Rec: 10/02/22 10:25 DCW [id number]) Therapeutic Exercises Standing Exercises Extension Standing Exercise Name Hip Extension Side bilateral Resistance Yellow Pallof Press Standing Exercise Name Pallof Press Side bilateral Resistance Lv 2 Abduction Standing Exercise Name Hip Abduction Side bilateral Resistance Yellow Manual Therapy Treatment Soft Tissue Mobilization Paraspinals Body Location B Lumbar paraspinals Mobilization Type Myofascial Release,Strumming, Sustained Pressure Intensity/Depth Moderate Body Position Prone Piriformis Body Location L Piriformis, glut med Mobilization Type Sustained Pressure,Trigger Point Release Intensity/Depth Moderate Body Position Prone Comments manual sustained pressure and w/ Hip IR/ ER PROM PT-OP-T Assessment and Plan Start: 07/03/22 15:40 Freq: Status: Active Protocol: Document 10/02/22 09:45 DCW (Rec: 10/02/22 10:25 DCW [id number]) Physical Therapy Assessment Impairments Impairments Functional Activities, Functional Mobility,Pain,Soft Tissue Mobility,Tone Goals Two Impairment L hip pain and stiffness Parts Manager Goal (LTG) Pt to demonstrate negative SLR and JAYRO tests in order to display improve hip mobility in order to ascend/descend stairs without discomfort. LTG Duration 10/23/22 One Impairment Pt does not have an appropriate home exercise program Short Term Goal (STG) Pt to be independent and compliant with an appropriate HEP STG Duration 10/23/22 Assessment Summary Assessment Pt still struggling with getting out and walking most days, increased pain with activity. If pt continues to plateau where she is at, may be necessary to return to PCP to explore further options. Physical Therapy Plan Frequency and Duration Frequency of Treatment 1-2x/wk Plan of Care Start Date 08/28/22 Plan of Care End Date 10/23/22 Therapeutic Interventions Therapeutic Interventions Home Exercise Program,Joint Mobilizations,Manual Therapy, Patient/Caregiver Education, Self-Care/Home Management,Soft Tissue Mobilization, Therapeutic Activities, Therapeutic Exercises Next Visit Focus/Plan Next Note Type Treatment Note Next Visit Plan REcheck response to manual and added stretching last tx. POC: Stretching/flexibility of hip and joint capsule, STM
--- NOTE | 2022-10-09 11:12 | PT.OTN ---
Current Diagnoses Pain in left hip (10/09/22) Pain in left knee (10/09/22) Low back pain, unspecified (10/09/22) Physical Therapy Treatment Note PT-OP-A Visit Information Start: 07/03/22 15:40 Freq: Status: Active Protocol: Document 10/09/22 10:30 DCW (Rec: 10/09/22 11:12 DCW [id number]) Out-Patient Physical Therapy Visit Information Visit Information Visit Type Treatment Note Visit Start Time 10:30 Visit Stop Time 11:15 Total Visit Minutes 45 Visit Number 9 Number of BOX TOE CUTTER Visits 0 Evaluation Information Evaluation Date 07/03/22 PT-OP-B Current Condition Start: 07/03/22 15:40 Freq: Status: Active Protocol: Document 07/03/22 09:45 DCW (Rec: 07/03/22 15:47 DCW [id number]) Current Condition History of Current Condition Onset Date ~Two month history Current Complaints Left hip pain History of Current Condition Pt reports that two months ago , she began to have fairly severe pain in her left low back, hip, and knee. Reports pain was more than a 10/10. Unsure of any sore of cause, cannot remember anything happening. Reports she could not find anything that gave her relief, was unable to do any of her normal activities, struggled to even go up stairs . Admits that now, after waiting to get seen, she is actually doing much better. 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 Pt reports she is now able to do all her chores, pain has been more like a 1-2/10. Overall, feels that she is doing well, but would like to learn what she can do to help prevent this from coming back, and help get her hip moving a little better, because it is still stiff. PT-OP-C Subjective Start: 07/03/22 15:40 Freq: Status: Active Protocol: Document 10/09/22 10:30 DCW (Rec: 10/09/22 11:12 DCW [id number]) OP-PT Subjective Patient Comments Patient Comments Pt admits she is much better than two or three weeks ago, but the pain is still there. PT-OP-F Manual Assessment Start: 07/03/22 15:40 Freq: Status: Active Protocol: Document 08/28/22 14:30 DCW (Rec: 08/28/22 15:16 DCW [id number]) Manual Assessments Soft Tissue Assessment Soft Tissue Mobility Assessment Moderate tone with tenderness to palpation 3/4: wincing and withdraw along left QL, left piriformis, left ITB Joint Mobility Assessment Joint Mobility Assessment Hypomobility of L3 with mild complaint of pain PT-OP-L Special Tests Start: 07/03/22 15:40 Freq: Status: Active Protocol: Document 08/28/22 14:30 DCW (Rec: 08/28/22 15:16 DCW [id number]) Special Tests Lumbar Spine Special Tests JAYRO Test Results positive left ipsilateral anterior knee pain Lio Test Results hip flexor tightness Straight Leg Raise Test Results hamstring tightness Slump Test Results Negative Manual Traction Test Results Negative A-P Shearing Test Results Negative PT-OP-M Strength Start: 07/03/22 15:40 Freq: Status: Active Protocol: Document 07/03/22 09:45 DCW (Rec: 07/03/22 15:52 DCW [id number]) Hip Strength Hip Manual Muscle Testing Right Flexion (L2) 5 Normal Abduction 5 Normal Adduction 5 Normal Left Flexion (L2) 5 Normal Abduction 5 Normal Adduction 5 Normal Knee Strength Knee Manual Muscle Testing Right Flexion (S2) 5 Normal Extension (L3) 5 Normal Left Flexion (S2) 5 Normal Extension (L3) 5 Normal PT-OP-Q Treatments Start: 07/03/22 15:40 Freq: Status: Active Protocol: Document 10/09/22 10:30 DCW (Rec: 10/09/22 11:12 DCW [id number]) Therapeutic Exercises Standing Exercises Extension Standing Exercise Name Hip Extension Side bilateral Resistance Red Pallof Press Standing Exercise Name Pallof Press Side bilateral Resistance Lv 2 Abduction Standing Exercise Name Hip Abduction Side bilateral Resistance Red Manual Therapy Treatment Soft Tissue Mobilization Paraspinals Body Location B Lumbar paraspinals Mobilization Type Myofascial Release,Strumming, Sustained Pressure Intensity/Depth Moderate Body Position Prone Piriformis Body Location L Piriformis, glut med Mobilization Type Sustained Pressure,Trigger Point Release Intensity/Depth Moderate Body Position Prone Comments manual sustained pressure and w/ Hip IR/ ER PROM PT-OP-T Assessment and Plan Start: 07/03/22 15:40 Freq: Status: Active Protocol: Document 10/09/22 10:30 DCW (Rec: 10/09/22 11:12 DCW [id number]) Physical Therapy Assessment Impairments Impairments Functional Activities, Functional Mobility,Pain,Soft Tissue Mobility,Tone Goals Two Impairment L hip pain and stiffness Cold Work Operator Goal (LTG) Pt to demonstrate negative SLR and JAYRO tests in order to display improve hip mobility in order to ascend/descend stairs without discomfort. LTG Duration 10/23/22 One Impairment Pt does not have an appropriate home exercise program Short Term Goal (STG) Pt to be independent and compliant with an appropriate HEP STG Duration 10/23/22 Assessment Summary Assessment Pt showing good progress overall, decreased severity and frequency in pain, notes that she has been able to be more active over the past week . Physical Therapy Plan Frequency and Duration Frequency of Treatment 1-2x/wk Plan of Care Start Date 08/28/22 Plan of Care End Date 10/23/22 Therapeutic Interventions Therapeutic Interventions Home Exercise Program,Joint Mobilizations,Manual Therapy, Patient/Caregiver Education, Self-Care/Home Management,Soft Tissue Mobilization, Therapeutic Activities, Therapeutic Exercises Next Visit Focus/Plan Next Note Type Treatment Note Next Visit Plan REcheck response to manual and added stretching last tx. POC: Stretching/flexibility of hip and joint capsule, STM
--- NOTE | 2022-10-12 11:11 | PT.OTN ---
Current Diagnoses Pain in left hip (10/12/22) Pain in left knee (10/12/22) Low back pain, unspecified (10/12/22) Physical Therapy Treatment Note PT-OP-A Visit Information Start: 07/03/22 15:40 Freq: Status: Active Protocol: Document 10/12/22 10:30 DCW (Rec: 10/12/22 11:11 DCW [id number]) Out-Patient Physical Therapy Visit Information Visit Information Visit Type Progress Note Visit Start Time 10:30 Visit Stop Time 11:15 Total Visit Minutes 45 Visit Number 10 Number of NEWSPAPER PRESS OPERATOR APPRENTICE Visits 0 Evaluation Information Evaluation Date 07/03/22 PT-OP-B Current Condition Start: 07/03/22 15:40 Freq: Status: Active Protocol: Document 07/03/22 09:45 DCW (Rec: 07/03/22 15:47 DCW [id number]) Current Condition History of Current Condition Onset Date ~Two month history Current Complaints Left hip pain History of Current Condition Pt reports that two months ago , she began to have fairly severe pain in her left low back, hip, and knee. Reports pain was more than a 10/10. Unsure of any sore of cause, cannot remember anything happening. Reports she could not find anything that gave her relief, was unable to do any of her normal activities, struggled to even go up stairs . Admits that now, after waiting to get seen, she is actually doing much better. 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 Pt reports she is now able to do all her chores, pain has been more like a 1-2/10. Overall, feels that she is doing well, but would like to learn what she can do to help prevent this from coming back, and help get her hip moving a little better, because it is still stiff. PT-OP-C Subjective Start: 07/03/22 15:40 Freq: Status: Active Protocol: Document 10/12/22 10:30 DCW (Rec: 10/12/22 11:11 DCW [id number]) OP-PT Subjective Patient Comments Patient Comments I thought it was better, I was doing well, and then it came back. PT-OP-F Manual Assessment Start: 07/03/22 15:40 Freq: Status: Active Protocol: Document 10/12/22 10:30 DCW (Rec: 10/12/22 10:51 DCW [id number]) Manual Assessments Soft Tissue Assessment Soft Tissue Mobility Assessment Moderate tone with tenderness to palpation 3/4: wincing and withdraw along left QL, bilateral piriformis, left ITB Joint Mobility Assessment Joint Mobility Assessment Hypomobility of L3 with mild complaint of pain PT-OP-L Special Tests Start: 07/03/22 15:40 Freq: Status: Active Protocol: Document 10/12/22 10:30 DCW (Rec: 10/12/22 10:51 DCW [id number]) Special Tests Lumbar Spine Special Tests JAYRO Test Results right ipsilateral anterior hip pain Lio Test Results hip flexor tightness Straight Leg Raise Test Results hamstring tightness Slump Test Results Negative Manual Traction Test Results Negative A-P Shearing Test Results Negative PT-OP-M Strength Start: 07/03/22 15:40 Freq: Status: Active Protocol: Document 07/03/22 09:45 DCW (Rec: 07/03/22 15:52 DCW [id number]) Hip Strength Hip Manual Muscle Testing Right Flexion (L2) 5 Normal Abduction 5 Normal Adduction 5 Normal Left Flexion (L2) 5 Normal Abduction 5 Normal Adduction 5 Normal Knee Strength Knee Manual Muscle Testing Right Flexion (S2) 5 Normal Extension (L3) 5 Normal Left Flexion (S2) 5 Normal Extension (L3) 5 Normal PT-OP-Q Treatments Start: 07/03/22 15:40 Freq: Status: Active Protocol: Document 10/12/22 10:30 DCW (Rec: 10/12/22 11:11 DCW [id number]) Gym Equipment Therapeutic Ball Pelvic tilts/circles Exercise Details Pelvic tilts/circles Ball Size/Color Green - 65 cm Body Position Sitting Therapeutic Exercises Standing Exercises Extension Standing Exercise Name Hip Extension Side bilateral Resistance Green Pallof Press Standing Exercise Name Pallof Press Side bilateral Resistance Lv 3 Abduction Standing Exercise Name Hip Abduction Side bilateral Resistance Green Manual Therapy Treatment Soft Tissue Mobilization Paraspinals Body Location B Lumbar paraspinals Mobilization Type Myofascial Release,Strumming, Sustained Pressure Intensity/Depth Moderate Body Position Prone Piriformis Body Location L Piriformis, glut med Mobilization Type Sustained Pressure,Trigger Point Release Intensity/Depth Moderate Body Position Prone Comments manual sustained pressure and w/ Hip IR/ ER PROM PT-OP-T Assessment and Plan Start: 07/03/22 15:40 Freq: Status: Active Protocol: Document 10/12/22 10:30 DCW (Rec: 10/12/22 11:11 DCW [id number]) Physical Therapy Assessment Impairments Impairments Functional Activities, Functional Mobility,Pain,Soft Tissue Mobility,Tone Goals Two Impairment L hip pain and stiffness Automation [employer] Controls Instructor Goal (LTG) Pt to demonstrate negative SLR and JAYRO tests in order to display improve hip mobility in order to ascend/descend stairs without discomfort. LTG Duration 11/23/22 One Impairment Pt does not have an appropriate home exercise program Short Term Goal (STG) Pt to be independent and compliant with an appropriate HEP STG Duration Met Assessment Summary Assessment Pt left side less symptomatic since beginning PT, however right hip has began to flare- up more, pt complaining of increasing pain when walking too long or sitting for extended periods. Continued therapy indicated to improve strength and soft tissue mobility of bilateral hips and low back, however may need to return to PCP if pt does not begin to progress more. Physical Therapy Plan Frequency and Duration Frequency of Treatment 1-2x/wk Plan of Care Start Date 10/12/22 Plan of Care End Date 11/23/22 Therapeutic Interventions Therapeutic Interventions Home Exercise Program,Joint Mobilizations,Manual Therapy, Patient/Caregiver Education, Self-Care/Home Management,Soft Tissue Mobilization, Therapeutic Activities, Therapeutic Exercises Next Visit Focus/Plan Next Note Type Treatment Note Next Visit Plan POC: Stretching/flexibility of hip and joint capsule, STM
--- NOTE | 2022-10-12 11:12 | PT.OPPOC ---
Physical, Occupational & Speech Therapy At [facility] Current Diagnoses Pain in left hip (10/12/22) Pain in left knee (10/12/22) Low back pain, unspecified (10/12/22) Visit Care Team Role Provider Type Gabriel Ruiz MD Family Provider Non-Staff Primary Care Provider Specialty: Family Practice Address: [address] [place] [address], [phone] Email: WINNIE Coyle Attending Provider Non-Staff Referring Provider Specialty: Medical Address: [address] [place] [address], [phone] Email: Plan Of Care PT-OP-T Assessment and Plan Start: 07/03/22 15:40 Freq: Status: Active Protocol: Document 10/12/22 10:30 DCW (Rec: 10/12/22 11:11 DCW [id number]) Physical Therapy Assessment Impairments Impairments Functional Activities, Functional Mobility,Pain,Soft Tissue Mobility,Tone Goals Two Impairment L hip pain and stiffness Penitentiary Goal (LTG) Pt to demonstrate negative SLR and JAYRO tests in order to display improve hip mobility in order to ascend/descend stairs without discomfort. LTG Duration 11/23/22 One Impairment Pt does not have an appropriate home exercise program Short Term Goal (STG) Pt to be independent and compliant with an appropriate HEP STG Duration Met Assessment Summary Assessment Pt left side less symptomatic since beginning PT, however right hip has began to flare- up more, pt complaining of increasing pain when walking too long or sitting for extended periods. Continued therapy indicated to improve strength and soft tissue mobility of bilateral hips and low back, however may need to return to PCP if pt does not begin to progress more. Physical Therapy Plan Frequency and Duration Frequency of Treatment 1-2x/wk Plan of Care Start Date 10/12/22 Plan of Care End Date 11/23/22 Therapeutic Interventions Therapeutic Interventions Home Exercise Program,Joint Mobilizations,Manual Therapy, Patient/Caregiver Education, Self-Care/Home Management,Soft Tissue Mobilization, Therapeutic Activities, Therapeutic Exercises Next Visit Focus/Plan Next Note Type Treatment Note Next Visit Plan POC: Stretching/flexibility of hip and joint capsule, STM Plan of Care Dates Plan of Care Start Date 10/12/22 Plan of Care End Date 11/23/22 Electronically Signed by: Waylon Bray, PT 10/12/22 1713 If you are in agreement with this Plan of Care, please return a signed and dated copy. I have reviewed this Plan of Care and certify that the skilled therapy services above are required to meet the patient?s needs. Physician Signature Date Printed Name and Credentials Clinical Instructor Signature Printed Name and Credentials
--- NOTE | 2022-12-28 16:32 | PT.OPDS ---
Current Diagnoses Pain in left hip (10/12/22) Pain in left knee (10/12/22) Low back pain, unspecified (10/12/22) Visit Care Team Role Provider Type Gabriel Ruiz MD Family Provider Non-Staff Primary Care Provider Specialty: Family Practice Address: [address] [place] [address], [id number] Email: WINNIE Coyle Attending Provider Non-Staff Referring Provider Specialty: Medical Address: [address] [place] [address], [phone] Email: Visit Number Visit Number 10 Discharge Summary PT-OP-B Current Condition Start: 07/03/22 15:40 Freq: Status: Active Protocol: Document 07/03/22 09:45 DCW (Rec: 07/03/22 15:47 DCW [id number]) Current Condition History of Current Condition Onset Date ~Two month history Current Complaints Left hip pain History of Current Condition Pt reports that two months ago , she began to have fairly severe pain in her left low back, hip, and knee. Reports pain was more than a 10/10. Unsure of any sore of cause, cannot remember anything happening. Reports she could not find anything that gave her relief, was unable to do any of her normal activities, struggled to even go up stairs . Admits that now, after waiting to get seen, she is actually doing much better. 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 Pt reports she is now able to do all her chores, pain has been more like a 1-2/10. Overall, feels that she is doing well, but would like to learn what she can do to help prevent this from coming back, and help get her hip moving a little better, because it is still stiff. PT-OP-C Subjective Start: 07/03/22 15:40 Freq: Status: Active Protocol: Document 10/12/22 10:30 DCW (Rec: 10/12/22 11:11 DCW [id number]) OP-PT Subjective Patient Comments Patient Comments I thought it was better, I was doing well, and then it came back. PT-OP-F Manual Assessment Start: 07/03/22 15:40 Freq: Status: Active Protocol: Document 10/12/22 10:30 DCW (Rec: 10/12/22 10:51 DCW [id number]) Manual Assessments Soft Tissue Assessment Soft Tissue Mobility Assessment Moderate tone with tenderness to palpation 3/4: wincing and withdraw along left QL, bilateral piriformis, left ITB Joint Mobility Assessment Joint Mobility Assessment Hypomobility of L3 with mild complaint of pain PT-OP-L Special Tests Start: 07/03/22 15:40 Freq: Status: Active Protocol: Document 10/12/22 10:30 DCW (Rec: 10/12/22 10:51 DCW [id number]) Special Tests Lumbar Spine Special Tests JAYRO Test Results right ipsilateral anterior hip pain Lio Test Results hip flexor tightness Straight Leg Raise Test Results hamstring tightness Slump Test Results Negative Manual Traction Test Results Negative A-P Shearing Test Results Negative PT-OP-M Strength Start: 07/03/22 15:40 Freq: Status: Active Protocol: Document 07/03/22 09:45 DCW (Rec: 07/03/22 15:52 DCW [id number]) Hip Strength Hip Manual Muscle Testing Right Flexion (L2) 5 Normal Abduction 5 Normal Adduction 5 Normal Left Flexion (L2) 5 Normal Abduction 5 Normal Adduction 5 Normal Knee Strength Knee Manual Muscle Testing Right Flexion (S2) 5 Normal Extension (L3) 5 Normal Left Flexion (S2) 5 Normal Extension (L3) 5 Normal PT-OP-T Assessment and Plan Start: 07/03/22 15:40 Freq: Status: Active Protocol: Document 12/28/22 16:31 DCW (Rec: 12/28/22 16:32 DCW [id number]) Physical Therapy Assessment Assessment Summary Assessment Pt canceled last scheduled visit, notes she is seeing pain management. Pt has now not been seen in more than two months, her POC has . Pt will require a new referral in order to return to skilled therapy. Pt will be discharged from PT at this time. Physical Therapy Plan Discharge Physical Therapy Discharge Reasons No Longer Attending PT
== END 2022-12-29 12:20 | disposition home or self-care (01) ==
LOC: PHYS 10:30
PROVIDERS: Family Provider Family Medicine; PCP Family Medicine; Referring Provider Nurse Practitioner Family; Visit Provider Nurse Practitioner Family
DX: M54.50 Low back pain, unspecified (principal); M25.552 Pain in left hip; M25.562 Pain in left knee
CPT/HCPCS: 97110; 97140; 97161

== ENCOUNTER → 2025-04-10 13:22 | Outpatient (CLI) | payer MEDICARE, SELFPAY ==
--- NOTE | 2025-04-10 13:23 | DI.RAD.S_ITS ---
PROCEDURE: XR DEXA AXIAL SKELETON INDICATIONS: Osteoporosis screening COMPARISON: None. FINDINGS: Lumbar Spine: Bone mineral density 0.893 g/cm2, T score -1.4. Left Femoral Neck: Bone mineral density 0.627 g/cm2, T score -2.0. Left Hip: Bone mineral density 0.748 g/cm2, T score -1.6. Fracture Risk Calculation (when applicable): 10-year fracture risk of a major osteoporotic fracture 17 percent and of a hip fracture 4.6 percent. (T score greater or equal to -1.0 to: NORMAL) (T score from -1.1 to -2.4: OSTEOPENIA) (T score less than or equal to -2.5: OSTEOPOROSIS) IMPRESSION: Osteopenia--- recommend repeat DEXA in 2-3 years for reassessment. Follow-up guidelines as follows: Osteoporosis: Consider a repeat DEXA and Vertebral Fracture Assessment (VFA) exam in 2 years or sooner if medically necessary, to reassess this patient's status. Osteopenia: Consider a repeat DEXA in 2-3 years to reassess this patient's status, or if there is a new clinical indication. Normal: Consider a repeat DEXA in 5 years or sooner, or if there is a new clinical indication. All treatment decisions require clinical judgment and consideration of individual patient factors, including patient preferences, comorbidities, previous drug use, risk factors not captured in the FRAX model (e.g., frailty, falls, vitamin D deficiency, increased bone turnover, interval significant decline in bone density ) and possible under- or over-estimation of fracture risk by FRAX. In addition, the NOF Guide recommends that FDA-approved medical therapies be considered in postmenopausal women and men age >= 50 years with a: * Hip or vertebral (clinical or morphometric) fracture * T-score of <=-2.5 at the spine or hip * Ten-year fracture probability by FRAX of >= 3% for hip fracture or >=20% for major osteoporotic fracture. Dictated by: Phillip Wan M.D. on 04/10/2025 at 22:00 Approved by: Phillip Wan M.D. on 04/10/2025 at 22:03
--- NOTE | 2025-04-10 13:23 | DI.US.S_ITS ---
PROCEDURE: US CAROTID DOPPLER BI INDICATIONS: chronic vertigo TECHNIQUE: Color and pulse Doppler interrogation was performed of both carotid systems, with image documentation and velocity measurements. COMPARISON: None. FINDINGS: Stenosis calculations are based on SRU (Society of Radiologists in Ultrasound) criteria. Right side: Brachial blood pressure: 144/78 mm Hg. Common carotid artery peak systolic velocity: 61 cm/sec. Internal carotid artery peak systolic velocity: 66 cm/sec. Internal carotid artery end diastolic velocity: 24 cm/sec. External carotid artery peak systolic velocity: 47 cm/sec. ICA/CCA peak systolic ratio: 1.08. Olivo scale imaging description: No significant plaque. Percent internal carotid artery stenosis: Less than 50% stenosis. Vertebral artery: Flow direction is antegrade. Left side: Brachial blood pressure: 128/80 mm Hg. Common carotid artery peak systolic velocity: 58 cm/sec. Internal carotid artery peak systolic velocity: 82 cm/sec. Internal carotid artery end diastolic velocity: 35 cm/sec. External carotid artery peak systolic velocity: 70 cm/sec. ICA/CCA peak systolic ratio: 1.4. Olivo scale imaging description: No significant plaque. Percent internal carotid artery stenosis: Less than 50% stenosis. Vertebral artery: Flow direction is antegrade. IMPRESSION: 1. Right ICA: Less than 50 % stenosis. 2. Left ICA: Less than 50 % stenosis. 3. Antegrade flow in the bilateral vertebral arteries. Dictated by: Luis Tyson M.D. on 04/11/2025 at 15:16 Approved by: Luis Tyson M.D. on 04/11/2025 at 15:18
== END ==
LOC: US 13:23
PROVIDERS: Family Provider Family Medicine; PCP Family Medicine; Referring Provider Family Medicine; Visit Provider Family Medicine
DX: I65.23 Occlusion and stenosis of bilateral carotid arteries (principal); R42 Dizziness and giddiness; M85.89 Other specified disorders of bone density and structure, multiple sites; Z78.0 Asymptomatic menopausal state
CPT/HCPCS: 77080; 93880

== ENCOUNTER 2025-05-22 12:24 | Day surgery (SDC) | payer MEDICARE, SELFPAY ==
--- NOTE | 2025-05-22 06:42 | P.OP.PRE_ITS ---
Pre-operative Note
--- NOTE | 2025-05-22 06:42 | PM.PREOP ---
Pre-operative Note Interval Note History & Physical reviewed/Exam performed by Physician: Yes Changes to H&P: No ASA Class (for procedural sedation): II
[2025-05-22 12:57] VITALS: BP 153/80; PULSE 58; RESP 16; TEMP 36.2; O2SAT 100
--- NOTE | 2025-05-22 15:26 | P.OP.EGD&C_ITS ---
Operative Date/Time/Diagnoses
--- NOTE | 2025-05-22 15:26 | PM.OP.EC ---
Operative Date/Time/Diagnoses Date of procedure: 05/22/25 Time of procedure: 16:10 Pre-op diagnosis: Hemorrhoids, dysphagia, GERD Post-op diagnosis: other (LA Grade C esophagitis, moderate gastritis, antritis, duodenitis, erosions with clot in body of stomach, clinical H pylori) Procedure & Clinicians Study performed: EGD/Colonoscopy with biopsy, banding of internal hemorrhoids Same procedure(s) as scheduled: Yes Indications: 74yo F, dysphagia, GERD, hemorrhoids Surgeon: Jonathan Fritz Anesthesia Type: MAC +/- Procedure Notes SCOAP/Timeout: Performed Procedure in detail: EGD Informed consent was obtained. The procedure, its risks, benefits, and alternatives were discussed. Patient understood and agreed to proceed. The patient was placed in the left lateral decubitus position with head elevated. Sedation given per anesthesia. The video endoscope was inserted into the oropharynx and guided under direct vision into the esophagus, stomach, and duodenum which were carefully examined. The scope was retroflexed to examine the hiatus and gastroesophageal junction. Antral biopsies were obtained for Helicobacter pylori. The patient tolerated the procedure very well. There were no apparent complications. Significant EGD findings: Z-line noted at: 36cm LA Grade C esophagitis with linear streaks proximally, biopsied to r/o Caal's, no stricture or mass in esophagus Moderate gastritis in body of stomach with small clots, erosions Moderate antral gastritis, biopsied for H pylori Duodenitis biopsied Colonoscopy Patient placed in left lateral recumbent position. Time out was performed. Procedural sedation was administered by anesthesia. Examination began with a thorough inspection of the perianal area. There was no evidence of fissures, fistulae, external hemorrhoids or cutaneous malignancy. The colonoscope was then placed into the rectum and the lumen was insufflated with carbon dioxide. The scope was carefully advanced forward. Ultimately the cecum was intubated and confirmed by identification of the ileocecal valve, the appendiceal orifice and the confluence of the taenia. The scope was then slowly withdrawn examining the colon thoroughly in all directions. In the rectum, retroflexion of the scope was performed for inspection of the distal rectum and anal canal. ?Significant colonoscopy findings: ?1. Quality of the preparation-good, [place] 2-3, improved with irrigation/suction ?2. No polyp or mass 3. Large internal hemorrhoid columns, band placed on 3 and 7 o'clock hemorrhoids. May need additional banding sessions due to size and number 4. Few small mouth diverticulae in sigmoid Scope withdrawal time: 14 minutes Findings: diverticulosis, gastritis, internal hemorrhoids and other findings (esophagitis) Specimen(s): other (biopsies) Estimated Blood Loss: 5 Complications: none Impression: Clinical H pylori, will treat with regimen Plan BID PPI Await biopsy results Post-procedure Recommendations: Colonscopy in 10 years Plan for aftercare: PACU then home Follow up: as needed Disposition: PACU
[2025-05-22 16:10] VITALS: BP 94/54; PULSE 57; RESP 16; TEMP 36.6; O2SAT 98
[2025-05-22 16:15] VITALS: BP 113/60; PULSE 59; RESP 21; O2SAT 97
[2025-05-22 16:20] VITALS: BP 103/61; PULSE 60; RESP 20; O2SAT 98
[2025-05-22] MEDS: LACTATED RINGERS 1,000 ML 42 ML IV (16:23)
--- NOTE | 2025-05-22 16:29 | SUR.PHASEII ---
Called in to Endo to Giuliana BRANTLEY. Reported pt still coughing up a bit and complaining of rectal pain. See new order for IV Tylenol.
[2025-05-22 16:30] VITALS: BP 127/74; PULSE 55; RESP 16; O2SAT 98
[2025-05-22] MEDS: ACETAMINOPHEN IV 1,000 MG/100 ML VIAL 400 MG IV (16:38)
[2025-05-22 16:40] VITALS: BP 140/79; PULSE 56; RESP 18; TEMP 36.7; O2SAT 98
[2025-05-22] MEDS: BENZOCAINE/MENTHOL 1 LOZ PKT 1 EACH PO (16:49)
== END 2025-05-22 16:55 | disposition home or self-care (01) ==
PROVIDERS: Family Provider Family Medicine; PCP Family Medicine; Referring Provider Surgery; Visit Provider Surgery
PROC: 0DJ08ZZ Inspection of Upper Intestinal Tract, Via Natural or Artificial Opening Endoscopic (ICD-10-PCS; CPT 45398; principal; 2025-05-22 13:30)
PROC: 0DJD8ZZ Inspection of Lower Intestinal Tract, Via Natural or Artificial Opening Endoscopic (ICD-10-PCS; CPT 45378; 2025-05-22 13:30)
DX: K21.9 Gastro-esophageal reflux disease without esophagitis (principal); K20.90 Esophagitis, unspecified without bleeding; K29.50 Unspecified chronic gastritis without bleeding; K29.80 Duodenitis without bleeding; K25.4 Chronic or unspecified gastric ulcer with hemorrhage; A04.8 Other specified bacterial intestinal infections; K64.8 Other hemorrhoids; K57.30 Diverticulosis of large intestine without perforation or abscess without bleeding; K92.89 Other specified diseases of the digestive system
CPT/HCPCS: 45398; 43239; J0131; J2704; J7120

== ENCOUNTER → 2025-05-31 09:06 | Outpatient (CLI) | payer MEDICARE, SELFPAY ==
[2025-05-31 09:48] LABS: Hematocrit 37.4 % (36-46); Hemoglobin 12.6 g/dL (12.0-16.0)
[2025-05-31 10:16] LABS: HEMOLYSIS < 15 (0-50); Iron 52 ug/dL (37-170)
[2025-05-31 10:27] LABS: Percent Iron Saturation 14 % (15-50); Total Iron Binding Capacity 374 ug/dL (265-497); Transferrin 312 mg/dL (206-381)
== END ==
LOC: LAB 09:07
PROVIDERS: PCP Family Medicine; Referring Provider Surgery; Visit Provider Surgery
DX: K62.5 Hemorrhage of anus and rectum (principal)
CPT/HCPCS: 36415; 83540; 83550; 85014; 85018